=== PATIENT | male | born 1985 | race Two or more races ===

== ENCOUNTER 2018-01-11 13:31 | Emergency (ER) | payer SELFPAY ==
[2018-01-11] MEDS ORDERED: TETRACAINE HCL 0.5% OPH SOLN 2 ML OD ONE (14:27)
[2018-01-11] MEDS ORDERED: ERYTHROMYCIN 0.5% OPH OINT 1 GM UNIT DOSE OD ONE (15:31)
--- NOTE | 2018-01-11 15:37 | ER Document Report ---
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 He has pain in the upper lateral right eye feels like there is something under the lid. Associated Symptoms: None Exacerbated by: Other - Moving his right eyeball Relieved by: Denies Similar symptoms previously: No Recently seen / treated by doctor: No - ROS ROS below otherwise negative: Yes Systems Reviewed and Negative: Yes All other systems reviewed and negative - NEURO Neurology: REPORTS: Vision blurred - right eye Past Medical History - General Information source: Patient - Social History Smoking Status: Current Every Day Smoker Frequency of alcohol use: Occasional Drug Abuse: None Lives with: Family Family History: Reviewed & Not Pertinent Patient has suicidal ideation: No Patient has homicidal ideation: No - Medical History Medical History: Negative Renal/ Medical History: Denies: Hx Peritoneal Dialysis Surgical Hx: Negative Vertical Provider Document - CONSTITUTIONAL Agree With Documented VS: Yes Exam Limitations: No Limitations - INFECTION CONTROL TRAVEL OUTSIDE OF THE [place] IN LAST 30 DAYS: No - HEENT HEENT: PERRLA. negative: Conjuctival Injection Notes: Anterior chamber clear, no limbic flare, no fluorescein uptake, no foreign body with lid flip/tarsal plate elevation. No drainage. - NECK Neck: Supple - RESPIRATORY O2 Sat by Pulse Oximetry: 98 - NEURO Level of Consciousness: Awake, Alert, Appropriate - DERM Integumentary: Warm, Dry Course - Re-evaluation Re-evalutation: 01/11/18 17:12 CT is negative and Dr. Shepherd states to use erythromycin eye ointment and a patient to see the eye doctor tomorrow. - Vital Signs Vital signs: Temp Pulse Resp BP Pulse Ox 98.1 F 85 16 107/59 L 98 01/11/18 13:40 01/11/18 13:40 01/11/18 13:40 01/11/18 13:40 01/11/18 13:40 Discharge - Discharge Clinical Impression: Ocular pain, right eye Condition: Good Disposition: HOME, SELF-CARE Instructions: Eye Injury ([facility]), Topical Erythromycin ([facility]) Additional Instructions: see the eye doctor tomorrow : dr. raman or dr rodriguez, call first thing in the morning for appt to er tonight if worse erythromycin eye ointment four times per day Prescriptions: Ibuprofen [Motrin 800 mg Tablet] 800 mg PO Q8HP PRN #30 tablet PRN Reason: Referrals: ESTER RODRIGUEZ MD [ACTIVE STAFF] - Follow up as needed BAM RAMAN MD [ACTIVE STAFF] - Follow up tomorrow
--- NOTE | 2018-01-11 15:58 | RADIOLOGY REPORT (SQ) ---
EXAM DESCRIPTION: CT ORBIT/SELLA WITHOUT COMPLETED DATE/TIME: 01/11/2018 3:49 pm REASON FOR STUDY: possible wood penetration in rt eye COMPARISON: None. TECHNIQUE: Noncontrasted images through the orbits windowed for bone and soft tissue. Additional co nichol and sagittal reconstructed images reviewed. All images stored on PACS. All CT scanners at this facility use dose modulation, iterative reconstruction, and/or weight based d osing when appropriate to reduce radiation dose to as low as reasonably achievable (ALARA). [facility]: Dose Right [facility]: CareDose [facility]: Dose Right [facility]: Teradose 4D [facility]: [email or web address] RADIATION DOSE: CT Rad equipment meets quality standard of care and radiation dose reduction techniq ues were employed. CTDIvol: 30.4 mGy. DLP: 312 mGy-cm. mGy. LIMITATIONS: None. FINDINGS: FACIAL BONES: No fracture or bone lesion. ORBITS: Intact. No fracture. Symmetric intact globes and retroorbital soft tissues. No foreign bod y detected. PARANASAL SINUSES: Clear. No significant mucosal thickening, mass or fluid. No nasal polyps. Maxilla ry sinus outlets are patent. SOFT TISSUES: No mass or edema. INFERIOR BRAIN: Limited view. No acute findings. OTHER: No other significant finding. IMPRESSION: Normal CT orbits without contrast. No foreign body evident. Symmetric globes and perio rbital soft tissues generally. TECHNICAL DOCUMENTATION: JOB ID: [id number] Quality ID # [id number]: Final reports with documentation of one or more dose reduction techniques (e.g., Au tomated exposure control, adjustment of the mA and/or kV according to patient size, use of iterative reconstruction technique) 2010 [employer]- All Rights Reserved Reading location - IP/workstation name: [email or web address]
[2018-01-11] MEDS ORDERED: IBUPROFEN 800 MG TABLET PO ONE (17:13)
[2018-01-11 17:25] VITALS: BP 120/66
== END 2018-01-11 17:35 | disposition home or self-care (01) ==
LOC: ER 13:31
DX: H57.11 Ocular pain, right eye (principal); F17.200 Nicotine dependence, unspecified, uncomplicated
CPT/HCPCS: 70480; 99283